=== PATIENT | female | born 1995 | race Caucasian/White ===

== ENCOUNTER 2022-07-20 00:08 | Emergency (ER) | payer BC ==
[~2022-07-20] VITALS: Ht 163 cm; Wt 93.0 kg
[2022-07-20 00:50] LABS: BASOPHILS % (AUTO) 0 % (0-10); EOSINOPHILS # (AUTO) 0.1 10^3/uL (0.0-0.3); EOSINOPHILS % (AUTO) 1 % (0-10); HEMATOCRIT 40 % (35-52); HEMOGLOBIN 13.4 g/dL (11.5-16.0); LYMPHOCYTES # (AUTO) 2.7 10^3/uL (1.0-4.0); LYMPHOCYTES % (AUTO) 23 % (12-44); MEAN CORPUSCULAR HEMOGLOBIN 27 pg (25-34); MEAN CORPUSCULAR HGB CONC 33 g/dL (32-36); MEAN CORPUSCULAR VOLUME 82 fL (80-99); MEAN PLATELET VOLUME 9.8 fL (9.0-12.2); MONOCYTES # (AUTO) 0.6 10^3/uL (0.0-1.0); MONOCYTES % (AUTO) 5 % (0-12); NEUTROPHILS # (AUTO) 8.6 10^3/uL (1.8-7.8); NEUTROPHILS % (AUTO) 71 % (42-75); PLATELET COUNT 276 10^3/uL (130-400); WHITE BLOOD COUNT 12.1 10^3/uL (4.3-11.0)
[2022-07-20 00:52] LABS: BILIRUBIN,URINE NEGATIVE (NEGATIVE); CLARITY,URINE CLEAR; COLOR,URINE YELLOW; GLUCOSE, URINE (UA) NEGATIVE (NEGATIVE); KETONES,URINE NEGATIVE (NEGATIVE); LEUKOCYTE ESTERASE ,URINE NEGATIVE (NEGATIVE); NITRITE,URINE NEGATIVE (NEGATIVE); PH,URINE 6.5 (5-9); PROTEIN,URINE NEGATIVE (NEGATIVE)
[2022-07-20 01:19] LABS: BACTERIA,URINE TRACE /HPF; RBC,URINE 0-2 /HPF; WBC,URINE 0-2 /HPF
--- NOTE | 2022-07-20 01:45 | ED GU-Female ---
General Chief Complaint: OB < 20 WEEKS Stated Complaint: VAG BLEEDING 7 WKS PREG Nursing Triage Note: LMP 05/20/22 REPORTS 7 WEEKS WITH SPOTTY VAGINAL BLEEDING STARTING APPROX. [id number]. Source: patient History of Present Illness Date Seen by Provider: Jul 20, 2022 Time Seen by Provider: 00:32 Initial Comments PT ARRIVES VIA POV WITH PT STATES SHE IS 7 WEEKS , WITH LMP 05/20/22 SHE STATES 30 MINUTES AGO, AT 2345, SHE WAS GETTING READY TO GO TO BED, AND WENT TO BATHROOM TO URINATE, AND HAD A LITTLE BIT OF BLOOD ON TISSUE WITH WIPING. THE NEXT TIME IT WAS JUST A LITTLE BIT OF BROWN ON TISSUE. SHE HAS NOT USED OR EVEN PUT ON A PAD SHE CALLED HER MOM, WHO TOLD HER TO COME HERE. SHE IS NOT HAVING ANY BLEEDING NOW NO CRAMPING OR PAIN AT ANY TIME NO NAUSEA/VOMITING NO URINARY SYMPTOMS PT IS AB 0 SHE HAD AN ULTRASOUND LAST THURSDAY IN [place], [place], WHERE SHE IS FROM AND WILL BE MOVING BACK TO IN OCTOBER--SHE HAS BEEN GOING BACK AND FORTH BETWEEN HERE AND THERE SINCE DECEMBER, WHEN SHE GOT . ' SHE REPORTS THAT ULTRASOUND DATED HER 6 WEEKS 5 DAYS, AND GOT [facility] IN 120'S ON ULTRASOUND, BUT THEY WERE UNABLE TO HEAR WITH REGULAR DOPPLER. HER NEXT APPOINTMENT IS AUGUST 08 IN [place]. SHE HAS NOT HAD ANY LAB DONE. PCP: NONE Allergies and Home Medications Patient Home Medication List Home Medication List Reviewed: Yes Review of Systems Review of Systems Constitutional: no symptoms reported EENTM: no symptoms reported Respiratory: no symptoms reported Gastrointestinal: no symptoms reported Genitourinary: see HPI : Yes LMP: May 20, 2022 Musculoskeletal: no symptoms reported Skin: no symptoms reported Psychiatric/Neurological: No Symptoms Reported Endocrine: No Symptoms Reported Hematologic/Lymphatic: No Symptoms Reported Past Loxdwgt-Qunnrg-Voelqf Hx Patient Social History Tobacco Use?: No Smoking Status: Never a Smoker Smokeless Tobacco Frequency: Never a User Use of E-Cig and/or Vaping Artis: Never a User Substance use?: No Alcohol Use?: No Pt feels they are or have been: No Immunizations Up To Date First/Initial COVID19 Vaccinat: X2 Past Medical History Surgery/Hospitalization HX: CHOLECYSTECTOMY Surgeries: Yes Gallbladder Respiratory: No Cardiac: No Neurological: No : Yes Last Menstrual Period: May 20, 2022 Reproductive Disorders: Yes Female Reproductive Disorders: Polycystic Ovarian Dis Genitourinary: No Gastrointestinal: No Musculoskeletal: No Endocrine: No HEENT: No Cancer: No Psychosocial: No Integumentary: No Blood Disorders: No Physical Exam Vital Signs Vital Signs - First Documented 07/20/22 00:19 Temp 36.9 Pulse 106 Resp 6 B/P (MAP) 147/90 (109) Pulse Ox 99 O2 Delivery Room Air Capillary Refill : Less Than 3 Seconds Height, Weight, BMI Height: '" Weight: lbs. oz. kg; 35.00 BMI Method: General Appearance: WD/WN, no apparent distress Neck: normal inspection Cardiovascular: regular rate, rhythm, no murmur Respiratory: normal breath sounds, no respiratory distress, no accessory muscle use Gastrointestinal: non tender, soft, no organomegaly Pelvic: normal external exam, normal adnexa, no cerv. motion tender, other (NO ACTIVE VAGINAL BLEEDING. CERVIX IS CLOSED, THERE IS A SCANT AMOUNT OF BROWN / OLD BLOOD IN CANAL. ) Back: no CVA tenderness Extremities: normal inspection Neurologic/Psychiatric: no motor/sensory deficits, alert, normal mood/affect, oriented x 3 Skin: normal color, warm/dry, tattoos/piercings Progress/Results/Core Measures Suspected Sepsis SIRS Temperature: Pulse: 106 Respiratory Rate: 6 Laboratory Tests 07/20/22 00:37: White Blood Count 12.1H Blood Pressure 147 /90 Mean: 84 Laboratory Tests 07/20/22 00:37: Platelet Count 276 Results/Orders Lab Results Laboratory Tests Test 07/20/22 00:23 07/20/22 00:37 Range/Units Urine Color YELLOW Urine Clarity CLEAR Urine pH 6.5 5-9 Urine Specific [place] 1.010 L 1.016-1.022 Urine Protein NEGATIVE NEGATIVE Urine Glucose (UA) NEGATIVE NEGATIVE Urine Ketones NEGATIVE NEGATIVE Urine Nitrite NEGATIVE NEGATIVE Urine Bilirubin NEGATIVE NEGATIVE Urine Urobilinogen 0.2 < = 1.0 MG/DL Urine Leukocyte Esterase NEGATIVE NEGATIVE Urine RBC (Auto) 3+ H NEGATIVE Urine RBC 0-2 /HPF Urine WBC 0-2 /HPF Urine Crystals NONE /LPF Urine Bacteria TRACE /HPF Urine Casts NONE /LPF Urine Mucus NEGATIVE /LPF Urine Culture Indicated NO White Blood Count 12.1 H 4.3-11.0 10^3/uL Red Blood Count 4.91 3.80-5.11 10^6/uL Hemoglobin 13.4 11.5-16.0 g/dL Hematocrit 40 35-52 % Mean Corpuscular Volume 82 80-99 fL Mean Corpuscular Hemoglobin 27 25-34 pg Mean Corpuscular Hemoglobin Concent 33 32-36 g/dL Red Cell Distribution Width 12.9 10.0-14.5 % Platelet Count 276 130-400 10^3/uL Mean Platelet Volume 9.8 9.0-12.2 fL Immature Granulocyte % (Auto) 0 % Neutrophils (%) (Auto) 71 42-75 % Lymphocytes (%) (Auto) 23 12-44 % Monocytes (%) (Auto) 5 0-12 % Eosinophils (%) (Auto) 1 0-10 % Basophils (%) (Auto) 0 0-10 % Neutrophils # (Auto) 8.6 H 1.8-7.8 10^3/uL Lymphocytes # (Auto) 2.7 1.0-4.0 10^3/uL Monocytes # (Auto) 0.6 0.0-1.0 10^3/uL Eosinophils # (Auto) 0.1 0.0-0.3 10^3/uL Basophils # (Auto) 0.0 0.0-0.1 10^3/uL Immature Granulocyte # (Auto) 0.0 0.0-0.1 10^3/uL Human Chorionic Gonadotropin, Quant [id number] H <5 MIU/ML My Orders Orders - TIM LOPEZ DO Cbc With Automated Diff (07/20/22 00:33) Hcg,Quantitative (07/20/22 00:33) Ua Culture If Indicated (07/20/22 00:33) Abo Rh Type (07/20/22 00:33) Vital Signs/I&O 07/20/22 07/20/22 07/20/22 00:19 00:46 01:47 Temp 36.9 Pulse 106 104 95 Resp 6 16 16 B/P (MAP) 147/90 (109) 128/62 (84) 127/84 Pulse Ox 99 98 99 O2 Delivery Room Air Room Air Room Air Capillary Refill : Less Than 3 Seconds Blood Pressure Mean: 84 Progress Note : Progress Note UNEVENTFUL ER STAY NO BLEEDING NO PAIN/CRAMPING VITALS STABLE UNABLE TO OBTAIN ANY HEART TONES, EXPECTED, DUE TO EARLY GESTATION OF LESS THAN 8 WEEKS. NO ULTRASOUND IS AVAILABLE AT THIS TIME, AND IS NOT NECESSARY AT THIS TIME, PT IS NO LONGER BLEEDING, BLEEDING SHE DID HAVE WAS VERY MINIMAL AND BRIEF AND HAS NOT HAD ANY PAIN / CRAMPING AT ANY TIME, WITH NORMAL VITALS BLOOD TYPE IS O+ DISCUSSED TEST RESULTS, ANTICIPATED COURSE, ACTIVITY RESTRICTIONS, NEED FOR FOLLOW UP AND RETURN PRECAUTIONS Departure Impression Primary Impression: Threatened in early Disposition: 01 HOME, SELF-CARE Condition: Stable Departure-Patient Inst. Decision time for Depature: 01:43 Referrals: NO,LOCAL PHYSICIAN (PCP/Family) Primary Care Physician Patient Instructions: Bleeding in Early ED Add. Discharge Instructions: HOME, REST LOTS OF FLUIDS NOTHING IN VAGINA--NO TAMPONS, DOUCHING OR INTERCOURSE FOLLOW UP WITH YOUR DR ON THURSDAY FOR FURTHER CARE--CALL ON THURSDAY MORNING. RETURN TO ER IF SOAKING MORE THAN 1 MAXI PAD AN HOUR OR YOU DEVELOP SEVERE ABDOMINAL / PELVIC PAIN All discharge instructions reviewed with patient and/or family. Voiced understanding. TIM LOPEZ DO Jul 20, 2022 01:45
[2022-07-20 01:47] VITALS: BP 127/84
== END 2022-07-20 01:48 | disposition home or self-care (01) ==
LOC: ER 00:11
DX: O20.0 Threatened abortion (principal); Z3A.01 Less than 8 weeks gestation of pregnancy
CPT/HCPCS: 36415; 81000; 84702; 85025; 86900; 86901